=== PATIENT | male | born 1955 | race Caucasian/White ===

== ENCOUNTER 2020-08-21 15:48 | Inpatient (IN) ==
[2020-08-21] MEDS ORDERED: 0.9 % Sodium Chloride 1,000 ML ONE (16:03)
[2020-08-21] MEDS ORDERED: Isovue-370 500 ML BOTTLE IVP ONE (16:12)
[2020-08-21] MEDS ORDERED: 0.9 % Sodium Chloride 1,000 ML IVC SCH ×2 (16:15→22:00)
[2020-08-21 16:23] LABS: Basophils % 0.2 %; Eosinophils % 0.2 %; Hemoglobin 10.7 g/dL (12.9-16.9); Immature Granulocytes % 0.7 % (0-4); Lymphocytes # 0.7 K/mcL (0.6-4.6); Lymphocytes % 8.7 %; Mean Corpuscular HGB Conc 30.6 g/dL (31.6-35.5); Mean Corpuscular Hemoglobin 31.3 pg (28.0-33.3); Mean Corpuscular Volume 102.3 fL (83.0-100.0); Mean Platelet Volume 10.1 fL (9.4-12.4); Monocytes # 0.4 K/mcL (0.0-1.3); Monocytes % 4.3 %; Platelet Count 345 K/mcL (140-400); Red Blood Count 3.42 M/mcL (4.19-5.50); Red Cell Distribution Width 16.8 % (11.5-14.5); Segmented Neutrophils % 85.9 %; White Blood Count 8.1 K/mcL (4.3-11.1)
[2020-08-21 16:45] LABS: Prothrombin Time 12.1 Seconds (9.4-12.1)
[2020-08-21 16:48] LABS: Activated Partial Thrombo Time 27.8 Seconds (26.0-36.0)
[2020-08-21 16:51] LABS: Acetaminophen < 10 mcg/mL (10-20); Alanine Aminotransferase 15 Units/L (7-52); Albumin 3.9 g/dL (3.5-5.7); Albumin/Globulin Ratio 1.4 (1.1-2.2); Alkaline Phosphatase 51 Units/L (34-104); Aspartate Amino Transferase 22 Units/L (13-39); BUN/Creatinine Ratio 14 (6-26); Bilirubin,Direct 0.1 mg/dL (0.0-0.2); Bilirubin,Indirect 0.3 mg/dL (0.0-1.0); Bilirubin,Total 0.4 mg/dL (0.3-1.0); Blood Urea Nitrogen 56 mg/dL (8-23); Calcium 9.1 mg/dL (8.6-10.3); Carbon Dioxide 26 mEq/L (23-29); Chloride 96 mEq/L (98-107); Ethanol < 10 mg/dL (Less than 10); Globulin 2.8 g/dL (2.4-3.5); Glucose 217 mg/dL (70-105); Osmolality,Calculated 294 (280-300); Potassium 4.6 mEq/L (3.5-5.1); Salicylate < 2.5 mg/dL (15.0-30.0); Sodium 131 mEq/L (136-145); Total Protein 6.7 g/dL (6.4-8.9); Troponin I 0.05 ng/mL (< 0.04); eGFR For African Americans 18 (> 60); eGFR For Non-African Americans 15 (> 60)
[2020-08-21 17:08] LABS: Large Platelets Present (Not Present); Platelet Estimate Normal (Normal); Reactive Lymphocytes Present (Not Present)
[2020-08-21] MEDS ORDERED: 0.9 % Sodium Chloride 1,000 ML IV ONE (18:44)
[2020-08-21] MEDS ORDERED: Acetaminophen 325 MG TABLET PO PRN (21:59)
[2020-08-21] MEDS ORDERED: Naloxone 0.4 MG/ML INJ IVP PRN (21:59)
[2020-08-21] MEDS ORDERED: Ondansetron 4 MG/2 ML VIAL IVP PRN (21:59)
[2020-08-21] MEDS ORDERED: Vancomycin 1 EACH in 0.9 % Sodium Chloride 250 ML IVPB PRN (23:00)
[2020-08-21 23:01] LABS: Adenovirus Not Detected (Not Detect); Bordetella Pertussis Not Detected (Not Detect); Chlamydophila pneumoniae Not Detected (Not Detect); Coronavirus 229E Not Detected (Not Detect); Coronavirus HKU1 Not Detected (Not Detect); Coronavirus NL63 Not Detected (Not Detect); Coronavirus OC43 Not Detected (Not Detect); Human Metapneumovirus Not Detected (Not Detect); Human Rhinovirus/Enterovirus Not Detected (Not Detect); Influenza A Subtype 2009 H1 Not Detected (Not Detect); Influenza B Not Detected (Not Detect); Mycoplasma pneumoniae Not Detected (Not Detect); Parainfluenza Virus 1 Not Detected (Not Detect); Parainfluenza Virus 2 Not Detected (Not Detect); Parainfluenza Virus 3 Not Detected (Not Detect); Parainfluenza Virus 4 Not Detected (Not Detect); Respiratory Syncytial Virus Not Detected (Not Detect); SARS-CoV-2 Not Detected (Not Detect)
[2020-08-22] MEDS ORDERED: Vancomycin 2,000 MG/520 ML IV.SOLN IVPB ONE
[2020-08-22] MEDS ORDERED: Cefepime HCl 1,000 MG in 0.9 % Sodium Chloride Mini Bag 100 ML IVPB SCH
[2020-08-22 00:06] LABS: Amphetamine Screen,Urine Negative ng/mL (Cutoff=1000); Barbiturate Screen,Urine Negative ng/mL (Cutoff=200); Benzodiazepines Screen,Urine Negative ng/mL (Cutoff=200); Cannabinoid Screen,Urine Negative ng/mL (Cutoff = 50); Cocaine Screen,Urine Negative ng/mL (Cutoff= 300); Color,Urine Dark Yellow (Yellow); Opiate Screen,Urine Negative ng/mL (Cutoff=300); Phencyclidine Screen,Urine Negative ng/mL (Cutoff=25)
[2020-08-22 00:07] LABS: Bilirubin,Urine Negative (Negative); Blood,Urine Trace (Negative); Clarity,Urine Cloudy (Clear); Glucose,Urine (UA) Normal (Normal); Ketones,Urine Negative (Negative); PH,Urine 5.5 pH Units (5.0-8.0); Protein,Urine 30 mg/dL (Neg-Trace); Specific Gravity,Urine 1.023 (1.010-1.025); Urobilinogen,Urine Normal (Normal)
[2020-08-22 00:08] LABS: Bacteria,Urine Few per hpf (None-Few); Hyaline Casts,Urine Few per lpf (None Seen); Leukocyte Esterase,Urine Negative (Negative); Mucus,Urine Few per lpf (None-Few); Nitrite,Urine Negative (Negative)
[2020-08-22] MEDS ORDERED: 0.9 % Sodium Chloride 1,000 ML IVC ONE (00:50)
[2020-08-22] MEDS ORDERED: Albuterol 2.5 MG/3 ML NEBULIZER IH PRN (01:49)
[2020-08-22] MEDS ORDERED: methylPREDNISolone 125 MG/2 ML VIAL IVP ONE (01:49)
[2020-08-22 02:27] LABS: ABG Base Excess -3 mEq/L (-2 to 3); ABG HCO3 26 mEq/L (21-27); ABG Oxygen Saturation 76 % (95-98); ABG PCO2 62 mmHg (35-45); ABG PH 7.22 pH Units (7.32-7.45); ABG PO2 49 mmHg (85-104); ABG TCO2 28 mEq/L (20-26); Blood Gas Modality 7LPM
[2020-08-22] MEDS ORDERED: *HR* Heparin 5,000 UNIT/ML VIAL IVP PRN ×2 (02:48)
[2020-08-22] MEDS ORDERED: *HR* Heparin 5,000 UNIT/ML VIAL IVP ONE (02:48)
[2020-08-22] MEDS ORDERED: Heparin 25,000UNIT/250ML 1/2NS 25,000 UNIT/250 ML IV.SOLN IVC SCH (03:00)
[2020-08-22] MEDS: Albuterol 2.5 MG/3 ML NEBULIZER IH SCH ×6 (03:53→23:26)
[2020-08-22 03:56] LABS: Hematocrit 33.7 % (37.5-50.1); Mean Corpuscular HGB Conc 29.7 g/dL (31.6-35.5); Mean Corpuscular Hemoglobin 31.2 pg (28.0-33.3); Mean Platelet Volume 10.1 fL (9.4-12.4); Platelet Count 297 K/mcL (140-400); Red Blood Count 3.21 M/mcL (4.19-5.50); Red Cell Distribution Width 16.2 % (11.5-14.5); White Blood Count 6.6 K/mcL (4.3-11.1)
[2020-08-22 04:04] LABS: Prothrombin Time 11.7 Seconds (9.4-12.1)
[2020-08-22 04:08] LABS: Heparin anti-factor XA UFH < 0.04 IU/mL (0.30-0.70)
[2020-08-22] MEDS ORDERED: *HR* LORazepam 2 MG/ML VIAL IVP ONE (04:20)
[2020-08-22] MEDS ORDERED: *HR* LORazepam 2 MG/ML VIAL ONE (04:20)
[2020-08-22] MEDS ORDERED: *HR* LORazepam 2 MG/ML VIAL IVP PRN ×2 (04:20→15:41)
[2020-08-22 05:21] LABS: ABG Base Excess -4 mEq/L (-2 to 3); ABG HCO3 25 mEq/L (21-27); ABG Oxygen Saturation 86 % (95-98); ABG PCO2 63 mmHg (35-45); ABG PH 7.21 pH Units (7.32-7.45); ABG PO2 64 mmHg (85-104); ABG TCO2 27 mEq/L (20-26); Blood Gas Modality NIV
[2020-08-22 05:28] LABS: Basophils % 0.1 %; Eosinophils # 0.1 K/mcL (0.0-0.6); Eosinophils % 0.7 %; Hemoglobin 10.2 g/dL (12.9-16.9); Immature Granulocytes % 0.5 % (0-4); Lymphocytes # 0.6 K/mcL (0.6-4.6); Lymphocytes % 7.4 %; Mean Corpuscular HGB Conc 30.9 g/dL (31.6-35.5); Mean Corpuscular Hemoglobin 31.8 pg (28.0-33.3); Mean Corpuscular Volume 102.8 fL (83.0-100.0); Mean Platelet Volume 10.4 fL (9.4-12.4); Monocytes # 0.4 K/mcL (0.0-1.3); Monocytes % 4.7 %; Neutrophils # 6.6 K/mcL (1.6-8.9); Platelet Count 335 K/mcL (140-400); Red Blood Count 3.21 M/mcL (4.19-5.50); Red Cell Distribution Width 16.2 % (11.5-14.5); Segmented Neutrophils % 86.6 %; White Blood Count 7.6 K/mcL (4.3-11.1)
[2020-08-22 05:41] LABS: Alanine Aminotransferase 17 Units/L (7-52); Albumin 3.7 g/dL (3.5-5.7); Albumin/Globulin Ratio 1.3 (1.1-2.2); Alkaline Phosphatase 49 Units/L (34-104); Aspartate Amino Transferase 29 Units/L (13-39); BUN/Creatinine Ratio 20 (6-26); Bilirubin,Total 0.4 mg/dL (0.3-1.0); Blood Urea Nitrogen 52 mg/dL (8-23); Calcium 8.1 mg/dL (8.6-10.3); Carbon Dioxide 22 mEq/L (23-29); Chloride 99 mEq/L (98-107); Globulin 2.8 g/dL (2.4-3.5); Glucose 225 mg/dL (70-105); Osmolality,Calculated 291 (280-300); Potassium 4.3 mEq/L (3.5-5.1); Sodium 130 mEq/L (136-145); Total Protein 6.5 g/dL (6.4-8.9); Troponin I < 0.03 ng/mL (< 0.04); eGFR For African Americans 30 (> 60); eGFR For Non-African Americans 25 (> 60)
[2020-08-22 05:49] LABS: Anisocytosis 1+ (Not Present); Platelet Estimate Normal (Normal); Poikilocytosis 1+ (Not Present); Toxic Granulation Present (Not Present)
[2020-08-22] MEDS ORDERED: Famotidine 20 MG/2 ML VIAL IVP ONE (06:08)
[2020-08-22] MEDS: levoFLOXacin 750 MG/150 ML 750 MG/150 ML BAG IVPB SCH (08:50)
[2020-08-22] MEDS ORDERED: predniSONE 20 MG TABLET PO SCH (09:00)
[2020-08-22] MEDS ORDERED: Furosemide 40 MG/4 ML VIAL IVP SCH (09:00)
[2020-08-22] MEDS ORDERED: Haloperidol Lactate 5 MG/ML VIAL IVP ONE (10:09)
[2020-08-22 14:43] LABS: Calcium 8.8 mg/dL (8.6-10.3)
[2020-08-22 14:52] LABS: Potassium 4.6 mEq/L (3.5-5.1)
[2020-08-22] MEDS ORDERED: D5% in Water 1,000 ML IVC PRN (15:02)
[2020-08-22] MEDS ORDERED: Dextrose Gel 15 GM/37.5 ML TUBE PO PRN ×2 (15:02)
[2020-08-22] MEDS ORDERED: *HR* Dextrose 50 % in Water (Vial) 50 ML VIAL IVP PRN (15:02)
[2020-08-22] MEDS ORDERED: *HR* OxyCODONE Immed Rel 5 MG TABLET PO ONE (15:08)
[2020-08-22] MEDS ORDERED: Dexmedetomidine HCl 400 MCG/100 ML MLS IVC SCH (16:00)
[2020-08-22 16:21] LABS: ABG Base Excess -2 mEq/L (-2 to 3); ABG HCO3 24 mEq/L (21-27); ABG Oxygen Saturation 94 % (95-98); ABG PCO2 48 mmHg (35-45); ABG PH 7.31 pH Units (7.32-7.45); ABG PO2 76 mmHg (85-104); ABG TCO2 26 mEq/L (20-26)
[2020-08-22] MEDS: Dexmedetomidine HCl 400 MCG/100 ML MLS IVC ONE ×2 (16:22→16:26)
[2020-08-22] MEDS: Dexmedetomidine HCl 400 MCG/100 ML MLS IVC SCH ×3 (16:26→23:03)
[2020-08-22] MEDS: Ringers Solution, Lactated 1,000 ML IVC SCH (16:52)
[2020-08-22] MEDS: Insulin LISPRO 300 UNITS/3 ML VIAL SUBQ SCH ×2 (18:02→23:17)
[2020-08-22] MEDS: MethylPREDNISolone 40 MG/ML VIAL IVP SCH (18:02)
[2020-08-22] MEDS: *HR* Heparin 5,000 UNIT/ML VIAL SQ SCH (18:05)
[2020-08-23] MEDS ORDERED: Vancomycin 2,000 MG/520 ML IV.SOLN IVPB SCH
[2020-08-23 01:26] LABS: Basophils % 0.1 %; Hematocrit 32.4 % (37.5-50.1); Hemoglobin 10.2 g/dL (12.9-16.9); Immature Granulocytes % 0.4 % (0-4); Lymphocytes # 0.4 K/mcL (0.6-4.6); Lymphocytes % 4.3 %; Mean Corpuscular HGB Conc 31.5 g/dL (31.6-35.5); Mean Corpuscular Volume 98.5 fL (83.0-100.0); Mean Platelet Volume 10.4 fL (9.4-12.4); Monocytes # 0.3 K/mcL (0.0-1.3); Neutrophils # 8.2 K/mcL (1.6-8.9); Platelet Count 388 K/mcL (140-400); Red Blood Count 3.29 M/mcL (4.19-5.50); Red Cell Distribution Width 15.9 % (11.5-14.5); Segmented Neutrophils % 92.2 %; White Blood Count 8.9 K/mcL (4.3-11.1)
[2020-08-23 01:42] LABS: Potassium 4.4 mEq/L (3.5-5.1)
[2020-08-23 01:43] LABS: Calcium 8.6 mg/dL (8.6-10.3)
[2020-08-23] MEDS: Dexmedetomidine HCl 400 MCG/100 ML MLS IVC SCH ×6 (02:40→23:47)
[2020-08-23] MEDS: Albuterol 2.5 MG/3 ML NEBULIZER IH SCH ×6 (04:25→23:45)
[2020-08-23] MEDS: MethylPREDNISolone 40 MG/ML VIAL IVP SCH ×2 (05:19→17:54)
[2020-08-23] MEDS: *HR* Heparin 5,000 UNIT/ML VIAL SQ SCH ×2 (05:20→17:54)
[2020-08-23] MEDS: Insulin LISPRO 300 UNITS/3 ML VIAL SUBQ SCH ×4 (05:31→23:54)
[2020-08-23] MEDS ORDERED: Haloperidol Lactate 5 MG/ML VIAL IVP ONE ×2 (05:56→21:36)
[2020-08-23] MEDS: Haloperidol Lactate 5 MG/ML VIAL IVP PRN (09:27)
[2020-08-23] MEDS: Ringers Solution, Lactated 1,000 ML IVC SCH (09:27)
[2020-08-23] MEDS ORDERED: *HR* HYDROmorphone (PF) 1 MG/ML SYRINGE IVP ONE (12:42)
[2020-08-24] MEDS: Vancomycin 1,250 MG/262.5 ML IV.SOLN IVPB SCH ×2 (00:52→12:36)
[2020-08-24] MEDS: Ringers Solution, Lactated 1,000 ML IVC SCH (03:36)
[2020-08-24] MEDS: Albuterol 2.5 MG/3 ML NEBULIZER IH SCH ×6 (04:07→23:18)
[2020-08-24] MEDS: *HR* Heparin 5,000 UNIT/ML VIAL SQ SCH ×2 (06:20→17:47)
[2020-08-24] MEDS: Insulin LISPRO 300 UNITS/3 ML VIAL SUBQ SCH ×3 (06:23→17:58)
[2020-08-24] MEDS: MethylPREDNISolone 40 MG/ML VIAL IVP SCH ×2 (06:25→17:48)
[2020-08-24 06:54] LABS: Basophils % 0.2 %; Hematocrit 36.2 % (37.5-50.1); Hemoglobin 11.5 g/dL (12.9-16.9); Immature Granulocytes % 0.6 % (0-4); Lymphocytes # 0.6 K/mcL (0.6-4.6); Lymphocytes % 5.4 %; Mean Corpuscular HGB Conc 31.8 g/dL (31.6-35.5); Mean Corpuscular Hemoglobin 30.8 pg (28.0-33.3); Mean Corpuscular Volume 97.1 fL (83.0-100.0); Mean Platelet Volume 10.2 fL (9.4-12.4); Monocytes # 0.7 K/mcL (0.0-1.3); Monocytes % 6.2 %; Neutrophils # 9.6 K/mcL (1.6-8.9); Platelet Count 420 K/mcL (140-400); Red Blood Count 3.73 M/mcL (4.19-5.50); Red Cell Distribution Width 15.6 % (11.5-14.5); Segmented Neutrophils % 87.6 %
[2020-08-24] MEDS: Dexmedetomidine HCl 400 MCG/100 ML MLS IVC SCH ×5 (07:06→23:10)
[2020-08-24 07:17] LABS: BUN/Creatinine Ratio 27 (6-26); Blood Urea Nitrogen 25 mg/dL (8-23); Calcium 9.2 mg/dL (8.6-10.3); Carbon Dioxide 23 mEq/L (23-29); Chloride 99 mEq/L (98-107); Glucose 298 mg/dL (70-105); Osmolality,Calculated 289 (280-300); Potassium 4.5 mEq/L (3.5-5.1); Sodium 132 mEq/L (136-145); eGFR For African Americans > 60 (> 60); eGFR For Non-African Americans > 60 (> 60)
[2020-08-24] MEDS: levoFLOXacin 750 MG/150 ML 750 MG/150 ML BAG IVPB SCH (08:29)
[2020-08-24] MEDS: Haloperidol Lactate 5 MG/ML VIAL IVP PRN (10:00)
[2020-08-24] MEDS ORDERED: QUEtiapine Fumarate 25 MG TABLET PO ONE (11:43)
[2020-08-25 00:54] LABS: Basophils % 0.2 %; Hematocrit 35.7 % (37.5-50.1); Hemoglobin 11.5 g/dL (12.9-16.9); Lymphocytes # 0.6 K/mcL (0.6-4.6); Lymphocytes % 6.8 %; Mean Corpuscular HGB Conc 32.2 g/dL (31.6-35.5); Mean Corpuscular Hemoglobin 31.4 pg (28.0-33.3); Mean Corpuscular Volume 97.5 fL (83.0-100.0); Mean Platelet Volume 10.2 fL (9.4-12.4); Monocytes # 0.5 K/mcL (0.0-1.3); Monocytes % 5.6 %; Neutrophils # 7.4 K/mcL (1.6-8.9); Platelet Count 403 K/mcL (140-400); Red Blood Count 3.66 M/mcL (4.19-5.50); Red Cell Distribution Width 15.4 % (11.5-14.5); Segmented Neutrophils % 85.4 %; White Blood Count 8.7 K/mcL (4.3-11.1)
[2020-08-25] MEDS: Insulin LISPRO 300 UNITS/3 ML VIAL SUBQ SCH ×4 (01:00→18:05)
[2020-08-25] MEDS: Vancomycin 1,250 MG/262.5 ML IV.SOLN IVPB SCH ×2 (01:00→12:26)
[2020-08-25 01:14] LABS: BUN/Creatinine Ratio 27 (6-26); Blood Urea Nitrogen 24 mg/dL (8-23); Calcium 8.8 mg/dL (8.6-10.3); Carbon Dioxide 22 mEq/L (23-29); Chloride 96 mEq/L (98-107); Glucose 331 mg/dL (70-105); Osmolality,Calculated 287 (280-300); Potassium 4.7 mEq/L (3.5-5.1); Sodium 130 mEq/L (136-145); eGFR For African Americans > 60 (> 60); eGFR For Non-African Americans > 60 (> 60)
[2020-08-25 01:21] LABS: VBG HCO3 24 mEq/L (21-27); VBG PCO2 36 mmHg (41-51); VBG PH 7.43 pH Units (7.32-7.42); VBG PO2 96 mmHg (25-50)
[2020-08-25] MEDS: Albuterol 2.5 MG/3 ML NEBULIZER IH SCH ×6 (04:02→23:03)
[2020-08-25] MEDS: *HR* Heparin 5,000 UNIT/ML VIAL SQ SCH ×2 (05:25→18:05)
[2020-08-25] MEDS: MethylPREDNISolone 40 MG/ML VIAL IVP SCH (05:26)
[2020-08-25] MEDS: levoFLOXacin 750 MG/150 ML 750 MG/150 ML BAG IVPB SCH (10:56)
[2020-08-25] MEDS: Doxycycline 100 MG CAPSULE PO SCH (20:50)
[2020-08-25] MEDS ORDERED: Insulin LISPRO 300 UNITS/3 ML VIAL SUBQ SCH (21:00)
[2020-08-26] MEDS ORDERED: Vancomycin 1,500 MG/265 ML IV.SOLN IVPB SCH
[2020-08-26 02:03] LABS: Basophils # 0.1 K/mcL (0.0-0.2); Basophils % 0.7 %; Eosinophils % 0.1 %; Hematocrit 39.4 % (37.5-50.1); Hemoglobin 12.8 g/dL (12.9-16.9); Immature Granulocytes % 5.4 % (0-4); Lymphocytes # 1.8 K/mcL (0.6-4.6); Lymphocytes % 17.8 %; Mean Corpuscular HGB Conc 32.5 g/dL (31.6-35.5); Mean Corpuscular Hemoglobin 31.6 pg (28.0-33.3); Mean Corpuscular Volume 97.3 fL (83.0-100.0); Mean Platelet Volume 10.3 fL (9.4-12.4); Monocytes % 13.6 %; Neutrophils # 6.2 K/mcL (1.6-8.9); Platelet Count 425 K/mcL (140-400); Red Blood Count 4.05 M/mcL (4.19-5.50); Red Cell Distribution Width 15.4 % (11.5-14.5); Segmented Neutrophils % 62.4 %; White Blood Count 9.9 K/mcL (4.3-11.1)
[2020-08-26 02:08] LABS: Monocytes # 1.4 K/mcL (0.0-1.3)
[2020-08-26 02:22] LABS: BUN/Creatinine Ratio 24 (6-26); Blood Urea Nitrogen 22 mg/dL (8-23); Calcium 9.3 mg/dL (8.6-10.3); Carbon Dioxide 27 mEq/L (23-29); Chloride 98 mEq/L (98-107); Glucose 243 mg/dL (70-105); Osmolality,Calculated 293 (280-300); Potassium 3.8 mEq/L (3.5-5.1); Sodium 136 mEq/L (136-145); eGFR For African Americans > 60 (> 60); eGFR For Non-African Americans > 60 (> 60)
[2020-08-26 02:37] LABS: Platelet Estimate Normal (Normal)
[2020-08-26] MEDS: Albuterol 2.5 MG/3 ML NEBULIZER IH SCH ×3 (03:53→11:45)
[2020-08-26 04:08] LABS: ABG Base Excess 4 mEq/L (-2 to 3); ABG HCO3 29 mEq/L (21-27); ABG Oxygen Saturation 97 % (95-98); ABG PCO2 44 mmHg (35-45); ABG PH 7.43 pH Units (7.32-7.45); ABG PO2 87 mmHg (85-104); ABG TCO2 31 mEq/L (20-26)
[2020-08-26] MEDS: *HR* Heparin 5,000 UNIT/ML VIAL SQ SCH (05:04)
[2020-08-26] MEDS: Doxycycline 100 MG CAPSULE PO SCH (07:51)
[2020-08-26] MEDS: Insulin LISPRO 300 UNITS/3 ML VIAL SUBQ SCH ×2 (07:52→11:28)
[2020-08-26] MEDS ORDERED: Furosemide 40 MG/4 ML VIAL IVP ONE (08:36)
[2020-08-26] MEDS ORDERED: predniSONE 20 MG TABLET PO SCH (09:00)
[2020-08-26] MEDS: levoFLOXacin 750 MG/150 ML 750 MG/150 ML BAG IVPB SCH (09:36)
[2020-08-26 11:13] VITALS: BP 151/81
== END 2020-08-26 15:39 | disposition home or self-care (01) | DRG 871 ==
LOC: EMEROOARM 15:48 → 2NNU 15:48 → SUATTDRO 23:09 → 2NNU 23:48
PROVIDERS: ADMIT Family Medicine; ATTEND Internal Medicine